=== PATIENT | male | born 1955 | race Caucasian/White ===

== ENCOUNTER 2021-11-05 13:56 | Emergency (ER) | payer OTHER ==
--- OUTSIDE RECORDS SUMMARY | 2021-11-05 14:26 | XMS REPORT | Continuity of Care Document ---
:1955 [facility] Address [facility] Edgar Irizarry [address] [place] [address] Care Team Providers Name Role Phone Pcp, Does Not Have A Primary Care Physician Doctor Unassigned, Name Attending Clinician Unavailable Kwame NATION Attending Clinician Unavailable Kwame Nation DO Attending Clinician Yaneth Claudio Attending Clinician YANETH BUNCH Attending Clinician Unavailable Kwame NATION Admitting Clinician Unavailable YANETH BUNCH Admitting Clinician Unavailable Payers Payer Name Policy Type Policy Number Effective Date Expiration Date S ource Problems Condition Condition Condition Status Onset Resolution Last Treating Co mments Source Name Details Category Date Date Treatment Clinician Date No known No known Disease Unive rs active active ity of problems problems [facility] Allergies, Adverse Reactions, Alerts Allergy Allergy Status Severity Reaction(s) Onset Inactive Treating Comm ents Source Name Type Date Date Clinician Lisinopr Propensi Active Cough 2020-07 Univer s il ty to 08-08 ity of adverse 00:00: [place] reaction 00 [facility] LISINOPR DRUG Active COUGH 2020-07 Univers [place] INGREDI 08-08 ity of 00:00: [place] 00 [facility] NO KNOWN Drug Active Univers ALLERGIE Class ity of [facility] Social History Social Habit Start Date Stop Date Quantity Comments Source Exposure to Not sure [facility] SARS-CoV-2 (event) Medica l Branch Sex [birth year] [facility] 00:00:00 00:00:00 [facility] Smoking Status Start Date Stop Date Source Unknown if ever smoked [facility] [place] [facility] Medications Ordered Filled Start Stop Current Ordering Indication Dosage Frequency Signature Comments Components Source Medication Medication Date Date Medication? Clinician (SIG) Name Name ketorolac No 30mg 30 mg, Unive rs (TORADOL) 09-0412 Intramuscu ity of injection 08:30: 07:25 [place], ONCE, [place] 30 mg 00 :00 1 dose, On Medical Sat Branch 09/04/21 at 0230, REINALDO ibuprofen Yes 600mg Take 1 Un [place] 600 mg 2-12 tablet by ity of tablet 00:00: mouth [place] 00 every 6 Medical (six) Branch hours as needed for Pain (scale 1-3). ibuprofen Yes 600mg Take 1 Un [place] 600 mg 2-12 tablet by ity of tablet 00:00: mouth [place] 00 every 6 Medical (six) Branch hours as needed for Pain (scale 1-3). ketorolac 2020-07 No 30mg 30 mg, Unive rs (TORADOL) 08-08 Intramuscu ity of injection 08:30: 07:24 lar, ONCE, [place] 30 mg 00 :00 1 dose, On Medical Tue Branch 06/08/21 at 0230, Routine
seafood team member approving Restricted medication : Devan BUNCH acetaminoph 2020-07- No 1000mg 1,000 mg, Univers en 08-08 Oral, ity of (TYLENOL) 08:30: 07:24 ONCE, [place] tablet [place] :[place] dose, On Medical 1,000 mg e Branch 06/08/21 at 0230, REINALDO ondansetron 2020-07- No 4mg 4 mg, Univ ers (ZOFRAN-ODT 08-08 Oral, ity of ) 08:00: 06:51 ONCE, 1 [place] disintegrat 00 :00 dose, On Medi solo ing tablet e Branch 4 mg 06/08/21 at 0200, Routine ondansetron 2020-07 Yes [id number] 4mg Take 1 Univers (ZOFRAN 1-16 tablet by ity of ODT) 4 mg 00:00: mouth [place] disintegrat 00 every 8 Medic al ing tablet (eight) Branch hours as needed for Nausea and Vomiting (N/V). ondansetron 2020-07 Yes [id number] 4mg Take 1 Univers (ZOFRAN 1-16 tablet by ity of ODT) 4 mg 00:00: mouth [place] disintegrat 00 every 8 Medic al ing tablet (eight) Branch hours as needed for Nausea and Vomiting (N/V). ondansetron 2020-07 Yes [id number] 4mg Take 1 Univers (ZOFRAN 1-16 tablet by ity of ODT) 4 mg 00:00: mouth [place] disintegrat 00 every 8 Medic al ing tablet (eight) Branch hours as needed for Nausea and Vomiting (N/V). ondansetron 2020-07 Yes [id number] 4mg Take 1 Univers (ZOFRAN 1-16 tablet by ity of ODT) 4 mg 00:00: mouth [place] disintegrat 00 every 8 Medic al ing tablet (eight) Branch hours as needed for Nausea and Vomiting (N/V). Vital Signs Vital Name Observation Time Observation Value Comments Source Systolic blood 2021-09-04 08:00:00 125 mm[Hg[facility] Diastolic blood 2021-09-04 08:00:00 91 mm[Hg] Unive [facility] Heart rate 2021-09-04 08:00:00 84 /min [facility] Respiratory rate 2021-09-04 08:00:00 18 /min [facility] Oxygen saturation in 2021-09-04 08:00:00 93 /min [facility] Arterial blood by [facility] Pulse oximetry [place] Body temperature 2021-09-04 07:10:00 36.56 Bhakti [facility] Body height 2021-09-04 07:10:00 182.9 cm [facility] Body weight 2021-09-04 07:10:00 102.059 kg [facility] BMI 2021-09-04 07:10:00 30.52 kg/m2 [facility] Systolic blood 2021-06-08 06:19:00 145 mm[Hg] [facility] Diastolic blood 2021-06-08 06:19:00 105 mm[Hg] Unive [facility] Medical Branch Heart rate 2021-06-08 06:19:00 104 /min [facility] Body temperature 2021-06-08 06:19:00 35.89 Bhakti [facility] Respiratory rate 2021-06-08 06:19:00 18 /min [facility] Body height 2021-06-08 06:19:00 182.9 cm [facility] Body weight 2021-06-08 06:19:00 105.235 kg [facility] BMI 2021-06-08 06:19:00 31.46 kg/m2 [facility] Oxygen saturation in 2021-06-08 06:19:00 95 /min [facility] Arterial blood by [facility] Pulse oximetry Branch Procedures Procedure Date / Time Performing Clinician Source Performed AUTHORIZATION FOR 2021-09-06 06:01:00 Doctor Unassigned, No [facility] RELEASE OF PHI Name Medical Branch CT TRAUMA HEAD WO 2021-09-04 07:46:24 [place] [facility] CONTRAST [facility] CT TRAUMA CERVICAL SPINE 2021-09-04 07:46:24 [place] [facility] WO CONTRAST Medical Branch XR CHEST 2 VW 2021-09-04 07:46:05 [place] [facility] XR LUMBAR SPINE 3 2021-09-04 07:46:05 [place] [facility] NOTICE OF PRIVACY 2021-09-04 06:58:45 Doctor Unassigned, No [facility] PRACTICES Name Medical Branch CONSENT/REFUSAL FOR 2021-09-04 06:58:22 [facility] Name Medical Branch XR LUMBAR SPINE 2 VW 2021-06-08 07:45:24 Devan Bunch [facility] XR SPINE THORACIC 3 VW 2021-06-08 07:45:00 Devan Bunch [facility] CT CERVICAL SPINE WO 2021-06-08 06:45:33 Devan Bunch [facility] CONTRAST Medical Branch CT HEAD WO CONTRAST 2021-06-08 06:45:33 Devan Bunch Universi ty of [facility] NOTICE OF PRIVACY 2021-06-08 06:12:42 Doctor Unassigned, No Univ [facility] PRACTICES Name [facility] Branch CONSENT/REFUSAL FOR 2021-06-08 06:12:27 Doctor Unassigned, No [facility] Name [facility] Encounters Start End Encounter Admission Attending Care Care Encounter Source Date/Time Date/Time Type Type Clinicians Facility Department ID 2021-09-06 2021-09-06 Orders Doctor KIRK [id number] Univers 00:00:00 00:00:00 Only Unassigned, CARISSA [id number] ity of [place] [facility] [id number] Codey as [phone] [address] 2021-09-04 2021-09-04 Emergency X RIOS [facility] [[email or web address] ERT [id number] Univers 01:13:00 02:50:00 PEARL ity of [facility] 2021-09-04 2021-09-04 Emergency Rios [facility] [[email or web address]] [id number] Univers 01:13:00 02:50:00 [place] [id number] ity of [place] [id number] [facility] [id number] [address] 2021-09-04 2021-09-04 Orders Doctor BRADLEY [id number] Univers 00:00:00 00:00:00 Only Unassigned, CARISSA [id number] ity of [place] [facility] [id number] Codey as [id number] [place] [address] Branch 2021-06-08 2021-06-08 Emergency Devan Bunch [facility] [[email or web address]] [id number] Univers 00:23:00 02:42:00 Yaneth [place] [id number] i ty of [place] [id number] [facility] [id number] [place] [address] Branch 2021-06-08 2021-06-08 Emergency X Devan BUNCH [facility] [[email or web address]] ERT [id number] Univers 00:23:00 02:42:00 ity of [facility] Results This patient has no known results.
[2021-11-05 14:57] LABS: Absolute Lymphocytes (CBC) 1.4 K/uL (0.7-4.9); Hematocrit 43.5 % (39.6-49.0); Lymphocytes % 21.9 % (15.3-44.8); MPV 7.3 fL (7.6-11.3); Protime INR 1.12; RBC Red Blood Cell Count 4.68 M/uL (4.33-5.43)
--- NOTE | 2021-11-05 14:58 | RAD REPORT ---
EXAM DESCRIPTION: CT - Head Brain Wo Cont - 11/05/2021 2:52 pm CLINICAL HISTORY: Headache, sudden, severe COMPARISON: No comparisons TECHNIQUE: All CT scans are performed using dose optimization technique as appropriate and may inclu de automated exposure control or mA/KV adjustment according to patient size. FINDINGS: No intracranial hemorrhage, hydrocephalus or extra-axial fluid collection.Mild generalized brain atrophy is seen.No areas of brain edema or evidence of midline shift. Moderate paranasal sinus disease is present involving all visualized sinuses. The calvarium is intact . IMPRESSION: No acute intracranial abnormality. Moderate multifocal paranasal sinus disease.
[2021-11-05 15:05] LABS: Albumin 3.7 g/dL (3.4-5.0); Magnesium 2.3 mg/dL (1.8-2.4); Potassium 3.9 mmol/L (3.5-5.1)
[2021-11-05 15:09] LABS: Bilirubin Direct 0.2 mg/dL (0-0.2); Bilirubin Total 0.6 mg/dL (0.2-1.0); Protein, Total 7.5 g/dL (6.4-8.2)
[2021-11-05 15:11] LABS: Troponin High Sensitivity 4.3 pg/mL (<58.9)
--- NOTE | 2021-11-05 15:28 | RAD REPORT ---
EXAM DESCRIPTION: CT - Head angio - 11/05/2021 3:22 pm CLINICAL HISTORY: Headache, sudden, severe Headache, drowsiness COMPARISON: Head Brain Wo Cont dated 11/05/2021 TECHNIQUE: CT angiography of the head was performed with MIPs. All CT scans are performed using dose optimization technique as appropriate and may include automated exposure control or mA/KV adjustment according to patient size. FINDINGS: No evidence of aneurysm is detected. No flow-limiting stenosis or vascular malformation id entified. Antegrade flow is seen in the vertebral arteries. The vertebral arteries are codominant. The visualized dural venous sinuses are patent. Moderate multifocal paranasal sinus disease. IMPRESSION: No significant flow abnormality is detected.
--- NOTE | 2021-11-05 15:32 | RAD REPORT ---
EXAM DESCRIPTION: RAD - Chest Single View - 11/05/2021 3:25 pm CLINICAL HISTORY: syncope, cough Chest pain. COMPARISON: No comparisons FINDINGS: Portable technique limits examination quality. Calcified granuloma is present in the left upper lobe. The lungs are otherwise clear. The heart is no rmal in size. No displaced fractures.Hardware is present left clavicle. IMPRESSION: No acute intrathoracic process suspected.
[2021-11-05] MEDS ORDERED: METOCLOPRAMIDE 10 MG/2mL INJ ONE (15:35)
[2021-11-05] MEDS ORDERED: NA CHLORIDE 0.9% 500 ML ONE (15:35)
[2021-11-05] MEDS ORDERED: dexAMETHasone 10 MG/ML VIAL ONE (15:35)
[2021-11-05] MEDS ORDERED: DIPHENHYDRAMINE 50 MG/ML VIAL ONE (15:35)
--- NOTE | 2021-11-05 17:20 | EDPHYS ---
Physician Documentation [facility] Name: Guicho Buitrago Age: 66 yrs Sex: Male : 1955 Arrival Date: 11/05/2021 Time: 13:59 Bed 19 Private MD: ED Physician Manny Morales HPI: 11/05 14:20 This 66 yrs old Male presents to ER via Ambulatory with complaints of Headache. jmm 14:20 The patient complains of pain to the forehead. Onset: The symptoms/episode jmm began/occurred 1 day(s) ago. Associated signs and symptoms: Pertinent positives: syncope. This is a 66 year old male with no chronic medical conditions that presents to the ED with complaints of frontal headache beginning yesterday. Patient states this occurred after a coughing fit. States he passed out after this. Patient has had a headache since. Denies vomiting. States having some light sensitivity. . Historical: - Allergies: 14:14 No Known Allergies; ab2 - PMHx: 14:14 None; ab2 - PSHx: 14:14 None; ab2 - Immunization history:: Adult Immunizations up to date. - Social history:: Smoking status: Patient denies any tobacco usage or history of. ROS: 14:20 Constitutional: Negative for fever, chills, and weight loss, Cardiovascular: Negative jmm for chest pain, palpitations, and edema. 14:20 Respiratory: Positive for cough. 14:20 Neuro: Positive for headache, syncope. 14:20 All other systems are negative. Exam: 14:20 Constitutional: This is a well developed, well nourished patient who is awake, alert, jmm and in no acute distress. Head/Face: atraumatic. Eyes: EOMI, no conjunctival erythema appreciated ENT: Moist Mucus Membranes Neck: Trachea midline, Supple Chest/axilla: Normal chest wall appearance and motion. Cardiovascular: Regular rate and rhythm. No edema appreciated Respiratory: Normal respirations, no respiratory distress appreciated Abdomen/GI: Non distended, soft Back: Normal ROM Skin: General appearance color normal MS/ Extremity: Moves all extremities, no obvious deformities appreciated, no edema noted to the lower extremities Neuro: Awake and alert Psych: Behavior is normal, Mood is normal, Patient is cooperative and pleasant Vital Signs: 14:11 BP 141 / 94; Pulse 76; Resp 17; Temp 98.2; Pulse Ox 99% ; Weight 107.95 kg; Height 6 ab2 ft. 0 in. (182.88 cm); Pain 10/10; 14:11 Body Mass Index 32.28 (107.95 kg, 182.88 cm) ab2 MDM: 14:20 Patient medically screened. [facility] 17:06 Data reviewed: vital signs, nurses notes. Counseling: I had a detailed discussion with carlos the patient and/or guardian regarding: the historical points, exam findings, and any diagnostic results supporting the discharge/admit diagnosis, lab results, radiology results, the need for outpatient follow up, to return to the emergency department if symptoms worsen or persist or if there are any questions or concerns that arise at home. 11/05 14:33 Order name: Basic Metabolic Panel; Complete Time: 15:12 [facility] 11/05 14:33 Order name: CBC with Diff; Complete Time: 15:00 [facility] 11/05 14:33 Order name: LFT's; Complete Time: 15:12 [facility] 11/05 14:33 Order name: Magnesium; Complete Time: 15:12 [facility] 11/05 14:33 Order name: PT-INR; Complete Time: 15:00 [facility] 11/05 14:33 Order name: Troponin HS; Complete Time: 15:12 [facility] 11/05 14:33 Order name: XRAY Chest (1 view); Complete Time: 15:43 [facility] 11/05 14:33 Order name: EKG; Complete Time: 14:34 [facility] 11/05 14:37 Order name: CT Head Brain wo Cont; Complete Time: 15:00 [facility] 11/05 15:10 Order name: CT Head Angio; Complete Time: 15:43 [facility] 11/05 14:33 Order name: Cardiac monitoring; Complete Time: 15:43 [facility] 11/05 14:33 Order name: EKG - Nurse/Tech; Complete Time: 17:24 [facility] 11/05 14:33 Order name: IV Saline Lock; Complete Time: 14:43 [facility] 11/05 14:33 Order name: Labs collected and sent; Complete Time: 14:43 [facility] 11/05 14:33 Order name: O2 Per Protocol; Complete Time: 15:43 [facility] 11/05 14:33 Order name: O2 Sat Monitoring; Complete Time: 15:43 [facility] Administered Medications: 15:42 Drug: NS 0.9% 500 ml Volume: 500 ml; Route: IV; Rate: 1 bolus; Site: left antecubital; [facility] 15:42 Drug: Reglan (metoCLOPramide) 20 mg Route: IVP; Site: left antecubital; [facility] 15:42 Drug: Decadron - Dexamethasone 10 mg Route: IVP; Site: left antecubital; [facility] 15:42 Drug: diphenhydrAMINE 12.5 mg Route: IVP; Site: left antecubital; [facility] Disposition: 18:29 Co-signature as Attending Physician, Manny Morales DO I was immediately available on-site ms3 in the Emergency Department for consultation in the care of the patient.. Disposition Summary: 11/05/21 17:20 Discharge Ordered Location: Home [facility] Condition: Stable jm Diagnosis - Headache jmm - Syncope jmm Followup: m - With: Private Physician - When: 2 - 3 days - Reason: Recheck today's complaints, Continuance of care, Re-evaluation by your physician Discharge Instructions: - Discharge Summary Sheet jm - Migraine Headache [facility] Forms: - Medication Reconciliation Form [facility] - Thank You Letter jm - Antibiotic Education jmm - Prescription Opioid Use [facility] Signatures: Dispatcher [employer] Bridger Sloan PA PA jmm Sims, Marcus, DO DO ms3 Reena Jack RN RN 6 Raphael Padilla2
--- NOTE | 2021-11-05 17:20 | ER ---
Nurse's Notes [facility] Name: Guicho Buitrago Age: 66 yrs Sex: Male : 1955 Arrival Date: 11/05/2021 Time: 13:59 Bed 19 Private MD: Diagnosis: Headache;Syncope Presentation: 11/05 14:11 Chief complaint: Patient states: "yesterday morning I coughed so hard I gave myself a ab2 headache and it has not gone away." Pt states he went to the [place] today and they sent him here. Pt c/o headache for 2 days. Coronavirus screen: Vaccine status: Patient reports being unvaccinated. Client denies travel out of the [place] in the last 14 days. At this time, the client does not indicate any symptoms associated with coronavirus-19. Ebola Screen: Patient negative for fever greater than or equal to 101.5 degrees Fahrenheit, and additional compatible Ebola Virus Disease symptoms Patient denies exposure to infectious person. Patient denies travel to an Ebola-affected area in the 21 days before illness onset. No symptoms or risks identified at this time. Initial Sepsis Screen: Does the patient meet any 2 criteria? No. Patient's initial sepsis screen is negative. Does the patient have a suspected source of infection? No. Patient's initial sepsis screen is negative. Risk Assessment: Do you want to hurt yourself or someone else? Patient reports no desire to harm self or others. Onset of symptoms is unknown. 14:11 Method Of Arrival: Ambulatory ab2 14:11 Acuity: TARYN 3 ab2 Triage Assessment: 14:14 Headache History: Denies prior headaches. General: Appears in no apparent distress. ab2 uncomfortable, Behavior is calm, cooperative, appropriate for age. Pain: Complains of pain in head Pain currently is 10 out of 10 on a pain scale. Pain began 2-3 days ago. Is continuous. Pain: Also complains of inability to perform activities of daily living. EENT: No deficits noted. No signs and/or symptoms were reported regarding the EENT system. Neuro: Level of Consciousness is awake, alert, obeys commands, Oriented to person, place, time, situation, Appropriate for age Ophthalmic Asst are equal bilaterally Moves all extremities. Gait is steady, Speech is normal. Neuro: Reports dizziness, headache. Cardiovascular: No deficits noted. Denies chest pain, shortness of breath, Patient's skin is warm and dry. Respiratory: Airway is patent Respiratory effort is even, unlabored, Respiratory pattern is regular, symmetrical. GI: No deficits noted. No signs and/or symptoms were reported involving the gastrointestinal system. : No deficits noted. No signs and/or symptoms were reported regarding the genitourinary system. Derm: No deficits noted. Skin is intact, is healthy with good turgor, Skin is pink, warm \\T\\ dry. Historical: - Allergies: 14:14 No Known Allergies; ab2 - PMHx: 14:14 None; ab2 - PSHx: 14:14 None; ab2 - Immunization history:: Adult Immunizations up to date. - Social history:: Smoking status: Patient denies any tobacco usage or history of. Screenin:40 Abuse screen: Denies threats or abuse. Denies injuries from another. Nutritional iw screening: No deficits noted. Tuberculosis screening: No symptoms or risk factors identified. Fall Risk None identified. Assessment: 17:40 Reassessment: Patient appears in no apparent distress at this time. Patient and/or iw family updated on plan of care and expected duration. Pain level reassessed. Patient is alert, oriented x 3, equal unlabored respirations, skin warm/dry/pink. Patient states feeling better. Patient states symptoms have improved. Vital Signs: 14:11 BP 141 / 94; Pulse 76; Resp 17; Temp 98.2; Pulse Ox 99% ; Weight 107.95 kg; Height 6 ab2 ft. 0 in. (182.88 cm); Pain 10/10; 14:11 Body Mass Index 32.28 (107.95 kg, 182.88 cm) ab2 ED Course: 13:59 Patient arrived in ED. am2 14:11 Bridger Lazo PA is PHCP. [facility] 14:11 Manny Morales DO is Attending Physician. [facility] 14:14 Triage completed. ab2 14:15 Arm band placed on right wrist. ab2 14:25 Bed in low position. Call light in reach. Side rails up X 1. tp1 14:33 Reena Jack RN is Primary Nurse. 6 14:43 Inserted saline lock: 20 gauge in left antecubital area, using aseptic technique. Blood tp1 collected. 14:54 CT Head Brain wo Cont In Process Unspecified. EDMS 15:24 CT Head Angio In Process Unspecified. EDMS 15:27 XRAY Chest (1 view) In Process Unspecified. EDMS 17:40 No provider procedures requiring assistance completed. IV discontinued, intact, iw bleeding controlled, No redness/swelling at site. Pressure dressing applied. Administered Medications: 15:42 Drug: NS 0.9% 500 ml Volume: 500 ml; Route: IV; Rate: 1 bolus; Site: left antecubital; [facility] 15:42 Drug: Reglan (metoCLOPramide) 20 mg Route: IVP; Site: left antecubital; [facility] 15:42 Drug: Decadron - Dexamethasone 10 mg Route: IVP; Site: left antecubital; [facility] 15:42 Drug: diphenhydrAMINE 12.5 mg Route: IVP; Site: left antecubital; [facility] Outcome: 17:20 Discharge ordered by MD. [facility] 17:40 Discharged to home ambulatory. 17:40 Condition: good 17:40 Discharge instructions given to patient, Instructed on discharge instructions, follow up and referral plans. Demonstrated understanding of instructions, follow-up care. 17:40 Patient left the ED. Signatures: Dispatcher [employer] EDMS Bridger Lazo PA PA jmm Williams, Irene, NORMAN AUSTIN Gayle Carter Jennifer RN RN jh6 Autumn Ruth tp1 Raphael Padilla ab2 Corrections: (The following items were deleted from the chart) 14:44 14:43 Bed in low position. Call light in reach. Side rails up X 1. tp1 tp1
[2021-11-05 19:20] VITALS: BP 141/94; TEMP 98.2; O2SAT 99
== END 2021-11-05 17:40 | disposition home or self-care (01) ==
LOC: ER 13:56
DX: R51.9 Headache, unspecified (principal); R55 Syncope and collapse; R05.9 Cough, unspecified
CPT/HCPCS: 93005; 85025; 80048; 36415; 83735; 85610; 80076; 84484; 70450; 70496; 71045; 96375; 96374; 99284; Q9967; J2765; J1200; J1100; J7040